=== PATIENT | female | born 1980 ===

== ENCOUNTER 2024-10-10 06:24 | Day surgery (SDC) | payer BC, SELFPAY | END 2024-10-10 16:29 | disposition home or self-care (01) | LOC: GI 06:24 | PROVIDERS: ATTENDING PHYSICIAN Internal Medicine Gastroenterology | DX: Z12.11 Encounter for screening for malignant neoplasm of colon (principal); K57.30 Diverticulosis of large intestine without perforation or abscess without bleeding; D12.4 Benign neoplasm of descending colon | CPT/HCPCS: 45385; 88305 ==